=== PATIENT | male | born 1950 | race Caucasian/White ===

== ENCOUNTER 2020-12-20 11:03 | Emergency (ER) | payer OTHER, SELFPAY ==
[2020-12-20 11:04] VITALS: BP 142/102; PULSE 80; RESP 18; TEMP 36.4; O2SAT 96; BMI 27.9
--- NOTE | 2020-12-20 11:16 | EX.ED.GENINJ ---
HPI History of Present Illness Chief Complaint: Laceration Informant: patient Narrative Narrative: Patient is a previously healthy 70-year-old male who presents to the emergency department for cat scratch to his left mcgrath. He states that there was pulsatile bleeding coming from the leg which prompted him to come to the emergency department. Patient did apply dressing prior to coming in. Patient denies any other injury. He is not sure when his last tetanus shot was. He denies any chest pain, shortness of breath or lightheadedness. Is not any blood thinning medications. No weakness or loss of sensation going down the foot. This happened just prior to arrival in the ED. PFSH PFSH Allergy/AdvReac Type Severity Reaction Status Date / Time No Known Allergies Allergy Verified 12/20/20 11:07 Social History Smoking Status: Current every day smoker tobacco type: cigarettes ROS ROS ED Constitutional Constitutional ED: Denies chills or fever(s) ENT ENT ED: Denies rhinorrhea Cardiovascular Cardiovascular: Denies chest pain Respiratory/Chest Respiratory/Chest: Denies cough or dyspnea Gastrointestinal Gastrointestinal: Denies abdominal pain, nausea or vomiting Musculoskeletal Musculoskeletal: Denies myalgias Integumentary Reports Abrasions Neurologic Neurologic: Denies headache(s) or weakness EXAM Physical Exam Const Vital Signs: 12/20/20 11:04 12/20/20 11:21 Temperature 97.6 F L 97.6 F L Temperature Source Temporal Temporal Pulse Rate 80 80 Respiratory Rate 18 18 Blood Pressure 142/102 H 142/102 H Blood Pressure Mean 115 115 Pulse Ox 96 96 Oxygen Delivery Method Room Air Room Air Positive well nourished and well developed General Appearance ED: well developed HEENT atraumatic Eyes PERRL and EOMs intact bilaterally Neck full ROM Resp normal respiratory effort and clear to auscultation bilaterally Cardio regular rhythm Rate: regular rate GI normal to inspection, nondistended, normoactive bowel sounds Back/Spine normal to inspection Extremity Extremity Narrative: Patient has varicosities to the anterior mcgrath. Pressure dressing released and no active bleeding currently. No repairable laceration present. This was most likely puncture wound directly over the varicose vein. Neuro moves all extremities and no focal motor deficits Sensorium / Orientation: alert Psych mental status grossly normal MDM MDM MDM Narrative Medical decision making narrative: Patient presents to the ED for bleeding from varicosity after cat scratch. Upon arrival to the emerge department vital signs within normal except for mild hypertension. He has a benign physical exam. No active bleeding on my examination. Patient will be updated on his Tdap. After Braulio bandage was on the leg for more than 10 minutes was reevaluated and he did not have any repeat bleeding. Antibiotic ointment was applied over the varicose vein. Nonadherent bandage was placed over and the Braulio wrap was reapplied. Patient still neurovascular intact. Recommend leaving this on for the rest of the day and he can reevaluated later. At this time he is stable for discharge. No signs of active bleeding. Return precautions are reviewed. Discharge Plan Triage Chief Complaint: Laceration ED Provider: Sukhi Cedillo Dx/Rx/DC Orders Clinical Impression: Cat scratch, Bleeding from varicose vein Instructions: Animal Bites and Scratches, ED Varicose Veins Activity Restrictions/Additional Instructions: Please follow-up with your PCP. Monitor for evidence infection including redness, warmth, swelling, tenderness around the area. Return if any of this develops. Disposition Disposition: Home, Self Care
[2020-12-20 11:21] VITALS: BP 142/102; PULSE 80; RESP 18; TEMP 36.4; O2SAT 96
[2020-12-20] MEDS: Diphth,Pertuss(Acell),Tet Vac 0.5 ML Vial IM (11:44)
--- NOTE | 2020-12-20 12:00 | ED.RN ---
this rn into give tetnus shot. Pt at this time cannot remember why he is here, does not know the day. States he forgot to go to work. Dr tan. Into to [place] pt
--- NOTE | 2020-12-20 12:04 | ED.RN ---
Pt does state he has been drinking. Labs to be obtained. Pt did drive himself
[2020-12-20 12:32] VITALS: BP 172/68; PULSE 80; RESP 18; O2SAT 99
[2020-12-20 12:34] LABS: Absolute Lymphocyte Count 1.53 X10^3/uL (0.83-4.51); Absolute Neutrophil Count 2.9 X10^3/uL (2.0-7.7); Basophil# 0.01 X10^3/uL; Basophil% 0.2 % (0-1); Eosinophil# 0.61 X10^3/uL; Hematocrit 43.3 % (40-54); Hemoglobin 14.2 g/dL (13.0-16.5); Lymphocyte # 1.53 X10^3/ul (0.83-4.51); Lymphocyte % 27.5 % (19-41); Mean Corp Hgb Conc 32.8 g/dL (32-36); Mean Corpuscular Hgb 29.7 pg (27.0-32.0); Mean Corpuscular Volume 90.6 fL (80-94); Monocyte# 0.54 X10^3/uL; Monocyte% 9.7 % (0-10); NRBC Flagged by Analyzer 0 % (0-5); Neutrophil # 2.86 X10^3/uL (2.7-7.7); Neutrophil % 51.4 % (47-70); Platelet Count 186 K/mm3 (150-450); RBC Distribution Width CV 13.2 % (11.6-14.6); RBC Distribution Width SD 43.8 fl (35.1-43.9); Red Blood Count 4.78 M/mm3 (4.6-6.2); White Blood Count 5.6 K/mm3 (4.4-11.0)
[2020-12-20 12:53] LABS: ALB/GLOB Ratio 1.1 RATIO (0.9-2.4); AST(SGOT) 21 U/L (15-37); Alanine Aminotransfer ALT/SGPT 33 U/L (16-61); Albumin, Serum 4.2 g/dL (3.2-5.0); Alkaline Phosphatase 51 U/L (45-117); Anion Gap 6 (5-15); BUN 19 mg/dL (7-18); BUN/Creat Ratio 14.4 RATIO (10-20); Calcium,Total 8.6 mg/dL (8.5-10.1); Chloride 108 mmol/L (98-107); Creatinine, Serum 1.32 mg/dL (0.70-1.30); EST Glomerular Filtration Rate 57 mL/min (>60); Est Glom Filt Rate - Afr Amer 69 mL/min (>60); Globulin 3.9 g/dL (2.2-4.2); Glucose 98 mg/dL (74-106); Potassium 3.6 mmol/L (3.5-5.1); Protein, Total 8.1 g/dL (6.4-8.2); Sodium Level 140 mmol/L (136-145)
--- NOTE | 2020-12-20 13:50 | ED.RN ---
Pt refusing to have CT scan. Pt at this time is alert and oriented, is able to provide all needed information. Dr Gao states okay to dc patient
[2020-12-20 13:52] VITALS: BP 140/68; PULSE 78; RESP 18; O2SAT 96
== END 2020-12-20 14:02 | disposition home or self-care (01) ==
PROVIDERS: Emergency Provider Emergency Medicine
DX: I83.892 Varicose veins of left lower extremity with other complications (principal); F17.210 Nicotine dependence, cigarettes, uncomplicated; W55.03XA Scratched by cat, initial encounter
CPT/HCPCS: 80053; 82077; 85025; 90471; 90715; 99284; A4216